=== PATIENT | male | born 1965 | race Two or more races ===

== ENCOUNTER 2024-08-20 20:56 | Inpatient (IN) | payer MEDICAID, OTHER ==
[~2024-08-20] VITALS: Ht 170.2 cm; Wt 95.6 kg
[2024-08-20] MEDS: MORPHINE SULFATE 4 MG/ML SYR/VIAL IV ONE (21:30)
--- NOTE | 2024-08-20 21:33 | ED.PDOC ---
HPI Comments 58-year-old male who came to ER for chest pains. Patient has history of hypertension and diabetes. States he has been having chest pain since yesterday afternoon, chest pain described to be pressure, substernal, intermittent, radiating to his left shoulder,associated with shortness of breath, dizziness and an episode of vomiting and diarrhea. Blood pressure upon arrival was 171/97 mmHg Chief Complaint: Chest Pain Time Seen by MD: 21:32 Reviewed Notes: Nurses Notes Allergies: Coded Allergies: NO KNOWN ALLERGIES (Unverified , 08/20/24) Information Source: Patient Mode of Arrival: Ambulatory Severity: Moderate Timing: Hours Duration: Intermittent Prehospital treatment: None Location: Substernal Radiation: Shoulder (L) Quality: Pressure Onset: With Light Exertion Cardiac Risk Factors: HTN, Diabetes History of: Similar pain in past Modifying Factors: Nothing Associated Signs and Symptoms: SOB, N/V Past Medical History PAST MEDICAL HISTORY: Asthma, DM, HTN Surgical History: Denies all surgeries Family History Family History: Reviewed,noncontributory to illness Social History Smoker: Non-Smoker Alcohol: Denies ETOH Use Drugs: Denies Drug Use Lives In: Home Constitutional: reports: weakness; denies: chills, diaphoresis, fatigue, fever, malaise, sweats, others EENTM: denies: blurred vision, double vision, ear bleeding, ear discharge, ear drainage, ear pain, ear ringing, eye pain, eye redness, hearing loss, mouth pain, mouth swelling, nasal discharge, nose bleeding, nose congestion, nose pain, photophobia, tearing, throat pain, throat swelling, voice changes, others Respiratory: reports: SOB at rest, shortness of breath; denies: cough, hemoptysis, orthopnea, SOB with excertion, stridor, wheezing, others Cardiovascular: reports: chest pain, dizzy spells, left arm pain; denies: diaphoresis, Dyspnea on exertion, edema, irregular heart beat, lightheadedness, palpitations, PND, syncope, others Gastrointestinal: reports: diarrhea, nausea, vomiting; denies: abdomen distended, abdominal pain, blood streaked bowels, constipated, dysphagia, difficulty swallowing, hematemesis, melena, poor appetite, poor fluid intake, rectal bleeding, rectal pain, others Genitourinary: denies: burning, dysuria, flank pain, frequency, hematuria, i ncontinence, penile discharge, penile sore, pain, testicle pain, testicle swelling, urgency, others Neurological: denies: dizziness, fainting, headache, left sided numbness, left sided weakness, numbness, paresthesia, pre-existing deficit, right sided numbness, right sided weakness, seizure, speech problems, tingling, tremors, weakness, others Musculoskeletal: denies: back pain, gout, joint pain, joint swelling, muscle pain, muscle stiffness, neck pain, others Integumetry: denies: bruises, change in color, change in hair/nails, dryness, laceration, lesions, lumps, rash, wounds, others Allergic/Immunocompromised: denies: Difficulty Healing, Frequent Infections, Hives, Itching, others Hematologic/Lymphatic: denies: anemia, blood clots, easy bleeding, easy bruising, swollen glands, others Endocrine: denies: excessive hunger, excessive sweating, excessive thirst, excessive urination, flushing, intolerance to cold, intolerance to heat, unexplained weight gain, unexplained weight loss, others Psychiatric: denies: anxiety, bipolar disorder, depression, hopeless, panic disorder, schizophrenia, sleepless, suicidal, others Physical Exam General Appearance: No Apparent Distress, Normal HEENT: Normal ENT Inspection, Pharynx Normal, TMs Normal Neck: Full Range of Motion, Non-Tender, Normal, Normal Inspection Respiratory: Chest Non-Tender, Lungs Clear, No Accessory Muscle Use, No Respiratory Distress, Normal Breath Sounds Cardiovascular: No Edema, No JVD, No Murmur, No Gallop, Normal Peripheral Pulses, Regular Rate/Rhythm Breast Exam: Deferred Gastrointestinal: No Organomegaly, Non Tender, No Pulsatile Mass, Normal Bowel Sounds, Soft Genitalia: Deferred Pelvic: Deferred Rectal: Deferred Extremities: No calf tenderness, Normal capillary refill, Normal inspection, Normal range of motion, Non-tender, No pedal edema Musculoskeletal : Apperance: Normal Neurologic: Alert, public health assistant II-XII nml as Tested, No Motor Deficits, Normal Affect, Normal Mood, No Sensory Deficits Cerebellar Function: Normal Reflexes: Normal Skin: Dry, Normal Color, Warm Lymphatic: No Adenopathy Was a procedure done? Was a procedure done?: No CP Differential Dx Differential Diagnosis: Angina, Anxiety / Panic Attack, Hyperventilation Differential Diagnosis: Angina, Chest Wall Pain, Costochondritis, Esophageal reflux/spasm, Gastritis, Myocardial Infarction X-Ray, Labs, Meds, VS Vital Signs Date Time Temp Pulse Resp B/P (MAP) Pulse Ox O2 Delivery O2 Flow Rate FiO2 08/21/24 00:57 81 20 169/109 08/21/24 00:56 169/109 08/21/24 00:31 98.6 81 20 167/109 (128) 96 98.6 08/20/24 21:56 82 08/20/24 21:12 98.1 84 16 171/97 (121) 97 98.1 08/20/24 21:03 79 Lab Test 08/20/24 22:26 08/20/24 21:10 Range/Units Troponin I High Sensitivity 13 12 </=54 ng/L White Blood Count 12.5 H 4.4-10.8 10^3/uL Red Blood Count 5.03 4.5-5.90 10^6/uL Hemoglobin 15.8 13.5-17.5 g/dL Hematocrit 46.3 41.0-53.0 % Mean Corpuscular Volume 91.9 80.0-100.0 fL Mean Corpuscular Hemoglobin 31.4 28.0-32.0 pg Mean Corpuscular Hemoglobin Concent 34.1 32.0-36.0 g/dL Red Cell Distribution Width 13.3 11.8-14.3 % Platelet Count 180 140-450 10^3/uL Mean Platelet Volume 9.5 6.9-10.8 fL Neutrophils (%) (Auto) 70.9 37.0-80.0 % Lymphocytes (%) (Auto) 18.2 10.0-50.0 % Monocytes (%) (Auto) 8.4 0.0-12.0 % Eosinophils (%) (Auto) 1.9 0.0-7.0 % Basophils (%) (Auto) 0.6 0.0-2.0 % Neutrophils # (Auto) 8.9 H 1.6-8.6 10 ^3/uL Lymphocytes # (Auto) 2.3 0.4-5.4 10 ^3/uL Monocytes # (Auto) 1.0 0-1.3 10 ^3/uL Eosinophils # (Auto) 0.2 0-0.8 10 ^3/uL Basophils # (Auto) 0.1 0-0.2 10 ^3/uL Nucleated Red Blood Cells 0.0 % Prothrombin Time 10.0 9.3-11.8 sec Prothrombin Time INR 0.94 0.9-1.15 Activated Partial Thromboplast Time 28.8 24.5-34.5 SEC D-Dimer, Quantitative 0.36 0.0-0.49 mg/L FEU Sodium Level 142 136-145 mmol/L Potassium Level 3.5 3.5-5.1 mmol/L Chloride Level 109 H 98-107 mmol/L Carbon Dioxide Level 25 20-31 mmol/L Anion Gap 8 5-15 Blood Urea Nitrogen 14 9-23 mg/dL Creatinine 0.93 0.700-1.30 mg/dL Glomerular Filtration Rate Calc 96 >90 mL/min BUN/Creatinine Ratio 15.1 10.0-20.0 Serum Glucose 137 H 74-106 mg/dL Calcium Level 9.0 8.7-10.4 mg/dL Total Bilirubin 0.4 0.2-1.0 mg/dL Aspartate Amino Transferase (AST) 31 13-40 U/L Alanine Aminotransferase (ALT) 33 7-40 U/L Alkaline Phosphatase 120 H 46-116 U/L B-Type Natriuretic Peptide 215.26 0-100 pg/mL Total Protein 6.4 5.7-8.2 g/dL Albumin 4.1 3.2-4.8 g/dL Current Medications Medications (Trade) Dose Ordered Sig/Cristian Route Start Time Stop Time Status Last Admin Sodium Chloride 1,000 ml @ 1,000 mls/hr Q1H ONCE IVB 08/20/24 21:30 08/20/24 22:29 DC 08/21/24 00:57 Morphine Sulfate 4 mg ONCE ONCE IV 08/20/24 21:30 08/20/24 21:31 DC 08/21/24 00:57 Ondansetron HCl (Zofran) 4 mg ONCE ONCE IV 08/20/24 21:30 08/20/24 21:31 DC 08/21/24 00:56 Hydralazine HCl (Apresoline Injection) 10 mg ONCE ONCE IV 08/20/24 21:30 08/20/24 21:31 DC 08/21/24 00:56 Time of 1ST Reevaluation: 21:29 Reevaluation 1ST: Unchanged Patient Education/Counseling: Diagnosis, Treatment Family Education/Counseling: No Family Present Departure 1 Departure Time of Disposition: 01:16 Impression: Primary Impression: Chest pain Disposition: 01 HOME / SELF CARE / HOMELESS Condition: Stable Discharged With: Self Critical Care Note Critical Care Time?: Yes (35 min-critical care time only) Critical care comment: Chest pains Stability Stability form required: No Heart Score Heart Score: Heart Score Response (Comments) Value History Slightly Suspicious 0 EKG Normal 0 Age 45-64 1 Risk Factors 1 or 2 risk factors 1 Troponin Normal limit 0 Total 2 I personally scribed for FIDELINA DUPONT MD ([email or web address]) on 08/20/24 at 21:33. Electronically submitted by Saúl Salmon ([email or web address]). FIDELINA DUPONT MD Aug 20, 2024 21:33
[2024-08-20 21:43] LABS: Basophils # (auto) 0.1 10 ^3/uL (0-0.2); Basophils % (auto) 0.6 % (0.0-2.0); Eosinophils # (auto) 0.2 10 ^3/uL (0-0.8); Eosinophils % (auto) 1.9 % (0.0-7.0); Hematocrit 46.3 % (41.0-53.0); Hemoglobin 15.8 g/dL (13.5-17.5); Lymphocytes # (auto) 2.3 10 ^3/uL (0.4-5.4); Lymphocytes % (auto) 18.2 % (10.0-50.0); Mean Corpuscular Hemoglobin 31.4 pg (28.0-32.0); Mean Corpuscular Hgb Conc. 34.1 g/dL (32.0-36.0); Mean Corpuscular Volume 91.9 fL (80.0-100.0); Monocytes % (auto) 8.4 % (0.0-12.0); Neutrophils # (auto) 8.9 10 ^3/uL (1.6-8.6); Neutrophils % (auto) 70.9 % (37.0-80.0); Platelet Count (auto) 180 10^3/uL (140-450); Red Blood Cells 5.03 10^6/uL (4.5-5.90); Red Cell Distribution Width 13.3 % (11.8-14.3); White Blood Cell 12.5 10^3/uL (4.4-10.8)
[2024-08-20 22:00] LABS: INR 0.94 (0.9-1.15); Partial Thromboplastin Time 28.8 SEC (24.5-34.5)
[2024-08-20 22:09] LABS: Alanine Aminotransferase 33 U/L (7-40); Albumin 4.1 g/dL (3.2-4.8); Anion Gap 8 (5-15); Aspartate Aminotransferase 31 U/L (13-40); BUN/Creatinine Ratio 15.1 (10.0-20.0); Bilirubin, Total 0.4 mg/dL (0.2-1.0); Blood Urea Nitrogen 14 mg/dL (9-23); Carbon Dioxide 25 mmol/L (20-31); Potassium 3.5 mmol/L (3.5-5.1); Sodium 142 mmol/L (136-145); Total Protein 6.4 g/dL (5.7-8.2)
[2024-08-20 22:13] LABS: Alkaline Phosphatase 120 U/L (46-116); Chloride 109 mmol/L (98-107); Glucose 137 mg/dL (74-106)
--- NOTE | 2024-08-20 22:19 | DVH ---
CHEST RADIOGRAPH Indication: chest pain Technique: Single frontal view of the chest was obtained Comparison: None FINDINGS: Heart size is normal the trachea is midline jon is splayed suggesting possible underlying left atr ial enlargement. There is mild pulmonary vascular congestion noted bilaterally. IMPRESSION: Possible very mild early CHF pattern 2. . 3. I would suggest 4. cardiac ECHO follow-up
[2024-08-21] VITALS (8 sets, daily range): BP systolic 112–148; BP diastolic 61–86; PULSE 69–103; RESP 15–19; TEMP 98–98.8; O2SAT 94–98
[2024-08-21] MEDS: hydrALAZINE HCL 20 MG/ML VL IV ONE ×3 (00:56→02:38)
[2024-08-21] MEDS: ONDANSETRON HCL 4 MG/2 ML VIAL IV ONE ×2 (00:56→00:58)
[2024-08-21] MEDS: SODIUM CHLORIDE 0.9% 1,000 ML IVB ONE (00:57)
[2024-08-21] MEDS: MORPHINE SULFATE 4 MG/ML SYR/VIAL IV ONE (00:57)
[2024-08-21] MEDS: ASPirin 81 mg TAB PO ONE (02:38)
[2024-08-21 03:12] LABS: Urine Bacteria None Seen /hpf (None Seen)
[2024-08-21 03:17] LABS: Urine Blood Negative /uL (Negative); Urine Clarity Clear (Clear); Urine Color Colorless (Yellow); Urine Protein, UAD Negative (Negative); Urine Squamous Epithelial Cell None Seen /hpf (<5); Urine Urobilinogen Normal (Negative); Urine WBC < 1 /HPF (0-3); Urine pH 6.5 (5.0-9.0)
[2024-08-21 04:52] LABS: Opiate Scree,Urine Neg (NEGATIVE)
[2024-08-21 04:57] LABS: Amphetamine Screen, Urine Neg (NEGATIVE); Barbiturate Scree,Urine Neg (NEGATIVE); Benzodiazephine Screen, Urine Neg (NEGATIVE); Cannabinoid Screen, Urine Neg (NEGATIVE); Cocaine Screen, Urine Neg (NEGATIVE); Phencyclidine Screen, Urine Neg (NEGATIVE)
[2024-08-21] MEDS ORDERED: NITROGLYCERIN 0.4 MG SL TAB SL PRN (07:45)
[2024-08-21] MEDS ORDERED: DEXTROSE (50%) 50ML SYRG IV PRN (07:45)
[2024-08-21] MEDS ORDERED: MORPHINE SULFATE INJ 2 MG/ml SYRG IV PRN ×2 (07:45)
[2024-08-21] MEDS ORDERED: DOCUSATE SOD 100 MG CAP PO PRN (07:45)
[2024-08-21] MEDS ORDERED: ONDANSETRON HCL 4 MG/2 ML VIAL IV PRN (07:45)
[2024-08-21] MEDS ORDERED: AMLO1TAB23 PO (09:04)
[2024-08-21] MEDS ORDERED: ATOR10TA52 PO (09:04)
[2024-08-21] MEDS ORDERED: METF-370 PO (09:04)
[2024-08-21] MEDS ORDERED: TRIA37.587 PO (09:08)
[2024-08-21] MEDS: metFORMIN HYDROCHLORIDE 500 MG TAB PO SCH (09:22)
--- NOTE | 2024-08-21 09:30 | DVHHP2 ---
History of Present Illness Reason for Visit: Chest pain History of Present Illness Julián Lopez is a 58-year-old male with past medical history of hypertension, asthma, and diabetes, who came in with complaints of chest pain. Patient states he has been experiencing intermittent chest pain for the last 2 days. He describes it as a tightness, with associated nausea and vomiting. He states the pain comes and goes with activity and at rest. Patient also complains of pain to the left side of nose/face. He states it popped yesterday, It is red, warm, swollen, and painful. Cardiovascular: HTN Pulmonary: Asthma Endocrine: Diabetes Past Surgical History: Hernia Repair (x 3), Other (right eye, left foot) Smoke: No ALCOHOL: none Drugs: None Lives: Alone Domestic Violence: Neg Review of Systems Constitutional: No: Fever, Chills, Sweats, Weakness, Malaise, Other Eyes: No: Pain, Vision change, Conjunctivae inflammation, Eyelid inflammation, Other, Redness ENT: Nose pain, Other (left side of nose/face red, warm, swollen, painful. States it popped yesterday, scab noted); No: Ear pain, Ear discharge, Nose discharge, Nose congestion, Mouth pain, Mouth swelling, Throat pain, Throat swelling Respiratory: Shortness of breath; No: Cough, Dry, SOB with excertion, Wheezing, Hemoptysis, Pleuritic Pain, Sputum, Wheezing, Other Cardiovascular: Chest Pain (tightness); No: Palpitations, Orthopnea, Paroxysmal Noc. Dyspnea, Edema, Lt Headedness, Other Gastrointestinal: Nausea, Vomiting; No: Abdominal Pain, Diarrhea, Constipation, Melena, Hematochezia, Other Genitourinary: No Dysuria, No Frequency, No Incontinence, No Hematuria, No Retention, No Other Musculoskeletal: No: other, neck pain, shoulder pain, arm pain, back pain, hand pain, leg pain, foot pain Skin: No: Rash, Lesions, Jaundice, Bruising, Other Neurological: No: Weakness, Numbness, Incoordination, Change in speech, Confusion, Seizures, Other Allergies: Coded Allergies: NO KNOWN ALLERGIES (Unverified , 08/20/24) Exam Vital Signs Vital Signs Date Time Temp Pulse Resp B/P (MAP) Pulse Ox O2 Delivery O2 Flow Rate FiO2 08/21/24 06:28 98.4 75 22 110/70 (83) 96 98.4 08/21/24 03:17 Room Air* 0 21 General Appearance: Alert, Oriented X3, Cooperative HEENT: Other (blind in right eye, left side of nose/face red, warm, swollen, painful ) Respiratory: Clear to auscultation, Normal air movement Cardiovascular: Regular rate, Normal S1, Normal S2, No murmurs Abdominal: Normal bowel sounds, Soft, No tenderness Extremities: No clubbing, No cyanosis, No edema, Normal pulses, No tenderness/swelling Skin: No rashes, No breakdown, No significant lesion Neuro: Normal gait, Normal speech, Strength at 5/5 X4 ext Psych/Mental Status: Mental status NL, Mood NL Labs/Xrays Labs Test 08/21/24 03:04 08/20/24 22:26 08/20/24 21:10 Range/Units Urine Color Colorless Yellow Urine Clarity Clear Clear Urine pH 6.5 5.0-9.0 Urine Specific Alborn 1.010 1.001-1.035 Urine Protein Negative Negative Urine Ketones Negative Negative Urine Blood Negative Negative /uL Urine Nitrite Negative Negative Urine Bilirubin Negative Negative Urine Urobilinogen Normal Negative mg/dL Urine Leukocyte Esterase Negative Negative /uL Urine RBC None seen 0 - 3 /hpf Urine Microscopic WBC < 1 0-3 /HPF Urine Squamous Epithelial Cells None seen <5 /hpf Urine Bacteria None seen None Seen /hpf Urine Glucose Trace Normal mg/dL Urine Opiates Screen Neg NEGATIVE Urine Fentanyl Screen Neg NEGATIVE Urine Barbiturates Screen Neg NEGATIVE Urine Phencyclidine Screen Neg NEGATIVE Urine Amphetamines Screen Neg NEGATIVE Urine Benzodiazepines Screen Neg NEGATIVE Urine Cocaine Screen Neg NEGATIVE Urine Cannabinoids Screen Neg NEGATIVE Troponin I High Sensitivity 13 </=54 ng/L White Blood Count 12.5 H 4.4-10.8 10^3/uL Red Blood Count 5.03 4.5-5.90 10^6/uL Hemoglobin 15.8 13.5-17.5 g/dL Hematocrit 46.3 41.0-53.0 % Mean Corpuscular Volume 91.9 80.0-100.0 fL Mean Corpuscular Hemoglobin 31.4 28.0-32.0 pg Mean Corpuscular Hemoglobin Concent 34.1 32.0-36.0 g/dL Red Cell Distribution Width 13.3 11.8-14.3 % Platelet Count 180 140-450 10^3/uL Mean Platelet Volume 9.5 6.9-10.8 fL Neutrophils (%) (Auto) 70.9 37.0-80.0 % Lymphocytes (%) (Auto) 18.2 10.0-50.0 % Monocytes (%) (Auto) 8.4 0.0-12.0 % Eosinophils (%) (Auto) 1.9 0.0-7.0 % Basophils (%) (Auto) 0.6 0.0-2.0 % Neutrophils # (Auto) 8.9 H 1.6-8.6 10 ^3/uL Lymphocytes # (Auto) 2.3 0.4-5.4 10 ^3/uL Monocytes # (Auto) 1.0 0-1.3 10 ^3/uL Eosinophils # (Auto) 0.2 0-0.8 10 ^3/uL Basophils # (Auto) 0.1 0-0.2 10 ^3/uL Nucleated Red Blood Cells 0.0 % Prothrombin Time 10.0 9.3-11.8 sec Prothrombin Time INR 0.94 0.9-1.15 Activated Partial Thromboplast Time 28.8 24.5-34.5 SEC D-Dimer, Quantitative 0.36 0.0-0.49 mg/L FEU Sodium Level 142 136-145 mmol/L Potassium Level 3.5 3.5-5.1 mmol/L Chloride Level 109 H 98-107 mmol/L Carbon Dioxide Level 25 20-31 mmol/L Anion Gap 8 5-15 Blood Urea Nitrogen 14 9-23 mg/dL Creatinine 0.93 0.700-1.30 mg/dL Glomerular Filtration Rate Calc 96 >90 mL/min BUN/Creatinine Ratio 15.1 10.0-20.0 Serum Glucose 137 H 74-106 mg/dL Calcium Level 9.0 8.7-10.4 mg/dL Total Bilirubin 0.4 0.2-1.0 mg/dL Aspartate Amino Transferase (AST) 31 13-40 U/L Alanine Aminotransferase (ALT) 33 7-40 U/L Alkaline Phosphatase 120 H 46-116 U/L B-Type Natriuretic Peptide 215.26 0-100 pg/mL Total Protein 6.4 5.7-8.2 g/dL Albumin 4.1 3.2-4.8 g/dL CHEST RADIOGRAPH FINDINGS: Heart size is normal the trachea is midline jon is splayed suggesting possible underlying left atrial enlargement. There is mild pulmonary vascular congestion noted bilaterally. IMPRESSION: Possible very mild early CHF pattern 2. . 3. I would suggest 4. cardiac ECHO follow-up Assessment/Plan Assessment/Plan Assessment: R/O ACS, Cellulitis of face, Possible new CHF, Hypertension, Diabetes, Plan: Admit to Tele, Cardiology consult, ECHO, IV antibiotics, IV hydration, Accu checks Q AC&HS with sliding scale, Home medications reconciled, Consider CT face if symptoms persist, Plan discussed with: Patient My Orders Orders - YANA DAVISLOUISE Correa MANAGER AREA Procedure Category Date Status Time Admit ADMIT 08/21/24 Transmitted 07:32 Code Status CODE 08/21/24 Transmitted 07:32 2 Gm Sodium Diet DIET 08/21/24 Transmitted Breakfast Hydrocodone-Acet PHA 08/21/24 Transmitted 5/325mg Tab (Newborn 07:45 Ondansetron Hcl PHA 08/21/24 Transmitted (Zofran) 07:45 Docusate Sodium PHA 08/21/24 Transmitted Capsule (Colace 07:45 Complete Blood Count LAB 08/22/24 Verified 04:00 Comprehensive LAB 08/22/24 Verified Metabolic Panel 04:00 Condition: Serious PEDRITO 08/21/24 Transmitted 07:32 Acetaminophen Tablet PHA 08/21/24 Transmitted (Tylenol Tablet) 07:45 Morphine Sulfate PHA 08/21/24 Transmitted Injection 07:45 Nitroglycerin PHA 08/21/24 Transmitted Sublingual (Ntrostat 07:45 Morphine Sulfate PHA 08/21/24 Transmitted Injection 07:45 Stat Ekg For Chest PEDRITO 08/21/24 Transmitted Pain 07:32 Notify Md Of Changes PEDRITO 08/21/24 Transmitted From Base 07:32 Pulling Unit Floorhand For PEDRITO 08/21/24 Transmitted 24 Hours 07:32 Emergency Dysrhythmia PEDRITO 08/21/24 Transmitted Protocol 07:32 Rhythm Strips Once PEDRITO 08/21/24 Transmitted Every Shift 07:32 Oxygen By Nasal RT 08/21/24 Transmitted Cannula 07:32 Glucose Blood PHA 08/21/24 Transmitted (Accu-Chek Comfort 11:30 Bedtime Insulin Scale PHA 08/21/24 Transmitted 22:00 Moderate Insulin Ss PHA 08/21/24 Transmitted 11:30 Dextrose 50% Syringe PHA 08/21/24 Transmitted 07:45 Echo 2d Mode Cardiac US 08/21/24 Transmitted DOP 07:32 * Cardiology Consult CONS 08/21/24 Transmitted 07:32 Date of Service: Aug 21, 2024 Billing Provider: JONY DAVIS Common Visit Codes: [id number] INP/OBS CARE (MOD) JONY DAVIS Aug 21, 2024 09:30
[2024-08-21] MEDS: TRIAMTERENE/HCTZ 37.5/25 MG CAP/TAB PO SCH (11:13)
[2024-08-21] MEDS: CLINDAMYCIN 600MG IV 50 ML IV SCH (11:14)
[2024-08-21] MEDS: ACCU-CHEK COMFORT CURVE STRIP VI SCH (11:14)
[2024-08-21] MEDS: amLODIPine BESYLATE 5 MG TAB PO SCH (11:14)
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
[2024-08-21] MEDS: InsuLIN REG 1unit/0.01ml Soln (100units/ml) SC SCH ×2 (11:30→22:17)
[2024-08-21] MEDS: ACETAMINOPHEN 325 MG TAB PO PRN (11:49)
[2024-08-21 11:53] LABS: Magnesium 1.9 mg/dL (1.6-2.6)
--- NOTE | 2024-08-21 12:38 | ECG ---
[facility] Test Date: 2024-08-20 Test Time: 21:03:51 Pat Name: YANDEL WHITE Department: ER Room: 0250T B Gender: M [employer]: KARRIE : 1965 Requested By: FIDELINA DUPONT Order Number: [id number] Reading MD: Jesse Morrison Measurements Intervals [place] Rate: 79 P: 2 MT: 164 QRS: -52 QRSD: 92 T: 111 QT: 365 QTc: 419 Interpretive Statements Sinus rhythm Left anterior fascicular block RSR' in V1 or V2, right VCD or RVH Borderline T abnormalities, lateral leads Electronically Signed On 08-21-2024 22:15:09 PDT by Jesse Morrison Please click the below link to view image of tracing.
--- NOTE | 2024-08-21 14:58 | DVHSR ---
APPROVED REPORT EXAM: Two-dimensional and M-mode echocardiogram with Doppler and color Doppler. Blood Pressure: 110/70 mmHg INDICATION R/O ACS, structural deficts RISK FACTORS Height: 5'7, Weight: 217 DIMENSIONS LVDd3.3 (3.8-5.7cm)LA (2D)4.1 (1.9-4.0cm)Aortic Root40.0 (2.0-3.7cm) LVDs2.6 (2.5-4.0cm)LA (MM) (1.9-4.0cm)Aortic Cusp Exc2.3 (1.5-2.0cm) EF (%) 50.0 (55-70%)Rt. Atrium3.1 (1.9-4.0cm)Asc. Aorta4.0 cm IVSd1.4 (0.7-1.1cm)RV (D)3.3 (1.8-2.4cm) PWd1.3 (0.7-1.1cm) Mitral Valve MitralMitral Stenosis E wave0.94m/sMV Mean GR.mmHg A wave0.66m/sMV Peak GR.60mmHg E/A ratio1.42D MVAcm2 DECEL [id number] 1/2 Timems Aortic Valve Aortic ValveAortic Stenosis V10.89m/Christelle Mean GR.3mmHg V21.13m/Christelle Peak GR.5mmHg LVOT Diameter2.3 (1.8-2.4cm)Doppler AVA3.27cm2 Pulmonic Valve V20.91m/s Tricuspid Valve TR Velocity2.45m/s [id number] Conclusion Normal biventricular size and systolic function. LVEF 55-60%. Normal wall motion. Trxy-av-mduedhix LV H. Grade 2 diastolic dysfunction. Mild LA enlargement. No significant valvular disease. Mild MAC. Trace MR. Trace TR. RVSP estimated at 32 mmHg based on RAP of 8 mmHg. Mild TAA - 4.0 cm. Normal size IVC but noncollapsing. No pericardial effusion.
[2024-08-21] MEDS: ATORVASTATIN 20 MG TAB PO SCH (22:06)
[2024-08-22] VITALS (8 sets, daily range): BP systolic 115–162; BP diastolic 64–97; PULSE 63–90; RESP 15–19; TEMP 97.7–98.8; O2SAT 93–97
[2024-08-22 07:27] LABS: Basophils # (auto) 0 10 ^3/uL (0-0.2); Basophils % (auto) 0.5 % (0.0-2.0); Eosinophils # (auto) 0.2 10 ^3/uL (0-0.8); Eosinophils % (auto) 2.6 % (0.0-7.0); Hematocrit 47.4 % (41.0-53.0); Hemoglobin 16.4 g/dL (13.5-17.5); Lymphocytes # (auto) 1.7 10 ^3/uL (0.4-5.4); Lymphocytes % (auto) 20.4 % (10.0-50.0); Mean Corpuscular Hemoglobin 31.8 pg (28.0-32.0); Mean Corpuscular Hgb Conc. 34.6 g/dL (32.0-36.0); Mean Corpuscular Volume 92.1 fL (80.0-100.0); Monocytes # (auto) 0.6 10 ^3/uL (0-1.3); Monocytes % (auto) 7.6 % (0.0-12.0); Neutrophils # (auto) 5.8 10 ^3/uL (1.6-8.6); Neutrophils % (auto) 68.9 % (37.0-80.0); Nucleated Red Blood Cells % 0.1 %; Platelet Count (auto) 186 10^3/uL (140-450); Red Blood Cells 5.15 10^6/uL (4.5-5.90); Red Cell Distribution Width 13.1 % (11.8-14.3); White Blood Cell 8.4 10^3/uL (4.4-10.8)
[2024-08-22 07:33] LABS: Alanine Aminotransferase 24 U/L (7-40); Albumin 3.8 g/dL (3.2-4.8); Alkaline Phosphatase 114 U/L (46-116); Anion Gap 9 (5-15); Aspartate Aminotransferase 23 U/L (13-40); BUN/Creatinine Ratio 12.5 (10.0-20.0); Bilirubin, Total 0.7 mg/dL (0.2-1.0); Blood Urea Nitrogen 12 mg/dL (9-23); Calcium 9.2 mg/dL (8.7-10.4); Carbon Dioxide 24 mmol/L (20-31); Chloride 106 mmol/L (98-107); Glucose 107 mg/dL (74-106); Potassium 3.6 mmol/L (3.5-5.1); Sodium 139 mmol/L (136-145)
--- NOTE | 2024-08-22 10:22 | ECG ---
[facility] Test Date: 2024-08-20 Test Time: 21:56:24 Pat Name: YANDEL WHITE Department: ER Room: 0250T B Gender: M Pharmacy Consultant: ER : 1965 Requested By: FIDELINA DUPONT Order Number: [id number] Reading MD: Jesse Morrison Measurements Intervals [place] Rate: 82 P: 33 PA: 163 QRS: -40 QRSD: 94 T: 145 QT: 353 QTc: 413 Interpretive Statements Sinus rhythm Left axis deviation RSR' in V1 or V2, right VCD or RVH Nonspecific T abnormalities, lateral leads Electronically Signed On 08-23-2024 18:40:04 PDT by Jesse Morrison Please click the below link to view image of tracing.
[2024-08-22] MEDS: HYDROcodone-ACET 5/325MG TAB PO PRN (12:30)
[2024-08-22] MEDS ORDERED: NIFE1TAB31 PO (13:04)
--- NOTE | 2024-08-22 13:52 | DVHPN2 ---
Consult Progress Note Subjective Other Systems: Patient in normal sinus rhythm at time of assessment. Denies any cardiac symptoms Objective vital signs Vital Sign Date Time Temp Pulse Resp B/P (MAP) Pulse Ox O2 Delivery O2 Flow Rate FiO2 08/22/24 09:00 98.6 82 19 162/93 (116) 95 98.6 08/22/24 08:30 Nasal Cannula* 2 28 Total Intake and Output 08/21/24 08/21/24 08/22/24 15:00 23:00 07:00 Intake Total 50 ml 350 ml 600 ml Output Total 700 ml Balance 50 ml -350 ml 600 ml medications Current Medications Medications Dose Ordered Sig/Cristian Route Start Time Stop Time Status Last Admin Dose Admin Acetaminophen/ Hydrocodone Bitart 1 tab Q4HP PRN PO 08/21/24 07:45 08/22/24 12:30 1 TAB Ondansetron HCl 4 mg Q4HP PRN IV 08/21/24 07:45 Docusate Sodium 100 mg BIDPRN PRN PO 08/21/24 07:45 Acetaminophen 650 mg Q6HP PRN PO 08/21/24 07:45 08/22/24 08:58 650 MG Morphine Sulfate 2 mg Q4HPRN PRN IV 08/21/24 07:45 Nitroglycerin 0.4 mg Q5MINP PRN SL 08/21/24 07:45 Morphine Sulfate 2 mg Q30M PRN IV 08/21/24 07:45 Diagnostic Test (Pha) 1 strip ACHS 08/21/24 11:30 08/22/24 11:17 1 STRIP Insulin Human Regular HS SC 08/21/24 22:00 08/21/24 22:17 2 UNITS Insulin Human Regular AC SC 08/21/24 11:30 08/21/24 17:57 2 UNITS Dextrose 50 ml UD PRN IV 08/21/24 07:45 Atorvastatin Calcium 10 mg HS PO 08/21/24 22:00 08/21/24 22:06 10 MG Triamterene/HCTZ 1 cap DAILY PO 08/21/24 10:00 08/22/24 08:50 1 CAP Clindamycin Phosphate 50 ml @ 50 mls/hr Q8HR IV 08/21/24 09:15 08/22/24 05:29 50 MLS/HR Nifedipine 60 mg DAILY PO 08/23/24 10:00 Examination: GENERAL:Normal, LUNGS:Normal, CVS:Normal, NEURO:Normal laboratory and microbiology Laboratory Tests 08/22/24 06:41 Test 08/22/24 06:41 Range/Units Serum Glucose 107 H 74-106 mg/dL Problem List/Assessment/Plan Problem List/Assessment/Plan Chest pain, likely in the setting of hypertensive urgency Dyslipidemia Type 2 diabetes mellitus History of drug use Obesity Plan/Recommendation We will continue with the following plan/recommendations (): * Transthoracic echocardiogram reveals EF 55-60%, RVSP 32mmHg * Chest pain protocol * HEART score: 4 points (moderate) * Recent negative stress test 2 months ago (per patient) * Blood pressure control * Lipid-lowering agent * Close Cardiac surveillance Given negative troponin level and unremarkable twelve lead electrocardiogram, doubt ACS. The patient recently underwent a nuclear stress test approximately two months ago in which results were negative. At this time, we will recommend for the patient to undergo aggressive blood pressure control. Today, BP still high. Primary team switched to Nifedipine for tighter BP control. Thank you for allowing us to care for this patient. Please call with any questions or concerns. This medical document was created using an electronic medical record system with voice recognition software and computerized dictation system. Although this document has been carefully reviewed, there might still be some phonetic and typographical errors. Occasional wrong-word or ``sound-alike substitutions may have occurred due to the inherent limitations of voice recognition software. These areas are purely typographical due to imperfections of the software programs and do not reflect any compromise in the patient's medical care. Please read the chart carefully and recognize, using context, where these substitutions have occurred. Plan discussed with: Patient Date of Service: Aug 22, 2024 Billing Provider: DENIS SANTANA Common Visit Codes: [id number] INP/OBS CARE(HIGH) DENIS SANTANA Aug 22, 2024 13:52
[2024-08-22 15:00] LABS: Hepatitis C Antibody Negative (Negative)
[2024-08-22 15:01] LABS: Hepatitis B Surface Antigen Negative (Negative)
[2024-08-23] MEDS ORDERED: NIFEdipine ER 30 MG TAB PO SCH (10:00)
--- NOTE | 2024-08-23 11:37 | DVHDS2 ---
Discharge Summary Date of Admission Aug 21, 2024 at 07:32 Date of Discharge: Aug 22, 2024 Labs/Diagnostic Data: Laboratory Results Test 08/22/24 10:56 08/22/24 06:41 08/21/24 11:24 08/21/24 03:04 POC Glucose 115 mg/dl (70-106) White Blood Count 8.4 10^3/uL (4.4-10.8) Red Blood Count 5.15 10^6/uL (4.5-5.90) Hemoglobin 16.4 g/dL (13.5-17.5) Hematocrit 47.4 % (41.0-53.0) Mean Corpuscular Volume 92.1 fL (80.0-100.0) Mean Corpuscular Hemoglobin 31.8 pg (28.0-32.0) Mean Corpuscular Hemoglobin Concent 34.6 g/dL (32.0-36.0) Red Cell Distribution Width 13.1 % (11.8-14.3) Platelet Count 186 10^3/uL (140-450) Mean Platelet Volume 9.6 fL (6.9-10.8) Neutrophils (%) (Auto) 68.9 % (37.0-80.0) Lymphocytes (%) (Auto) 20.4 % (10.0-50.0) Monocytes (%) (Auto) 7.6 % (0.0-12.0) Eosinophils (%) (Auto) 2.6 % (0.0-7.0) Basophils (%) (Auto) 0.5 % (0.0-2.0) Neutrophils # (Auto) 5.8 10 ^3/uL (1.6-8.6) Lymphocytes # (Auto) 1.7 10 ^3/uL (0.4-5.4) Monocytes # (Auto) 0.6 10 ^3/uL (0-1.3) Eosinophils # (Auto) 0.2 10 ^3/uL (0-0.8) Basophils # (Auto) 0 10 ^3/uL (0-0.2) Nucleated Red Blood Cells 0.1 % Sodium Level 139 mmol/L (136-145) Potassium Level 3.6 mmol/L (3.5-5.1) Chloride Level 106 mmol/L (98-107) Carbon Dioxide Level 24 mmol/L (20-31) Anion Gap 9 (5-15) Blood Urea Nitrogen 12 mg/dL (9-23) Creatinine 0.96 mg/dL (0.700-1.30) Glomerular Filtration Rate Calc 92 mL/min (>90) BUN/Creatinine Ratio 12.5 (10.0-20.0) Serum Glucose 107 mg/dL (74-106) Calcium Level 9.2 mg/dL (8.7-10.4) Total Bilirubin 0.7 mg/dL (0.2-1.0) Aspartate Amino Transferase (AST) 23 U/L (13-40) Alanine Aminotransferase (ALT) 24 U/L (7-40) Alkaline Phosphatase 114 U/L (46-116) Total Protein 6.0 g/dL (5.7-8.2) Albumin 3.8 g/dL (3.2-4.8) Hemoglobin A1c 5.4 % A1C (<5.7) Magnesium Level 1.9 mg/dL (1.6-2.6) Triglycerides Level 97 mg/dL (< 150) Cholesterol Level 114 mg/dL (< 200) LDL Cholesterol 61 mg/dL (< 100) HDL Cholesterol 41 mg/dL (40-59) Thyroid Stimulating Hormone (TSH) 1.82 uIU/mL (0.55-4.78) Hepatitis B Surface Antigen Negative (Negative) Hepatitis C Antibody Negative (Negative) Urine Color Colorless (Yellow) Urine Clarity Clear (Clear) Urine pH 6.5 (5.0-9.0) Urine Specific [place] 1.010 (1.001-1.035) Urine Protein Negative (Negative) Urine Ketones Negative (Negative) Urine Blood Negative /uL (Negative) Urine Nitrite Negative (Negative) Urine Bilirubin Negative (Negative) Urine Urobilinogen Normal mg/dL (Negative) Urine Leukocyte Esterase Negative /uL (Negative) Urine RBC None seen /hpf (0 - 3) Urine Microscopic WBC < 1 /HPF (0-3) Urine Squamous Epithelial Cells None seen /hpf (<5) Urine Bacteria None seen /hpf (None Seen) Urine Glucose Trace mg/dL (Normal) Urine Opiates Screen Neg (NEGATIVE) Urine Fentanyl Screen Neg (NEGATIVE) Urine Barbiturates Screen Neg (NEGATIVE) Urine Phencyclidine Screen Neg (NEGATIVE) Urine Amphetamines Screen Neg (NEGATIVE) Urine Benzodiazepines Screen Neg (NEGATIVE) Urine Cocaine Screen Neg (NEGATIVE) Urine Cannabinoids Screen Neg (NEGATIVE) Test 08/20/24 22:26 08/20/24 21:10 Troponin I High Sensitivity 13 ng/L (</=54) Prothrombin Time 10.0 sec (9.3-11.8) Prothrombin Time INR 0.94 (0.9-1.15) Activated Partial Thromboplast Time 28.8 SEC (24.5-34.5) D-Dimer, Quantitative 0.36 mg/L FEU (0.0-0.49) B-Type Natriuretic Peptide 215.26 pg/mL (0-100) Other Laboratory Tests 08/22/24 06:41 Brief Hx & Hospital Course: R/O ACS, Cellulitis of face, Possible new CHF, Hypertension, Diabetes, initial plans Admit to Tele, Cardiology consult, ECHO, IV antibiotics, IV hydration, Accu checks Q AC&HS with sliding scale, Home medications reconciled, Consider CT face if symptoms persist, pt was cleared by cardiology and discharged to home EF is low, pt is aware Condition at Discharge: Fair Final Diagnosis/Problems List see above Discharge Disposition: Home Discharge Instruct/Medications Diet: Cardiac 2g Na,low cholest Activity: No Restrictions, As Tolerated Discharge Statement: "Patient was advised to return to the ER or call 911 if any headaches, dizziness, shortness of breath, chest pain, abdominal pain, bleeding, fevers, or worsening of medical condition. Patient was counseled about treatment plan, medications, possible side effects, patientverbalized understanding. All questions were answered to the best of my ability. This discharge took greater then 30 minutes in planning, reviewing documentation, counseling the patient, and discussing with other team members." ASSESSMENT ASSESSMENT Assessment Date of Service: Aug 22, 2024 Billing Provider: MONIQUE CLARK DO Common Visit Codes: [id number]/[id number] DISCH DAY >30min MONIQUE CLARK DO Aug 23, 2024 11:37
== END 2024-08-22 18:00 | disposition home or self-care (01) | DRG 194 ==
LOC: ER 20:56 → OVERFLOW 08-21 07:32 → TELE-EAST 08-21 09:45
PROVIDERS: ADMIT Internal Medicine; ATTEND Internal Medicine
DX: I11.0 Hypertensive heart disease with heart failure (principal); I24.9 Acute ischemic heart disease, unspecified; E11.9 Type 2 diabetes mellitus without complications; L03.211 Cellulitis of face; E66.9 Obesity, unspecified; I16.0 Hypertensive urgency; I50.33 Acute on chronic diastolic (congestive) heart failure; E78.5 Hyperlipidemia, unspecified; J45.909 Unspecified asthma, uncomplicated; Z82.3 Family history of stroke; Z81.8 Family history of other mental and behavioral disorders; Z82.49 Family history of ischemic heart disease and other diseases of the circulatory system; Z68.33 Body mass index [BMI] 33.0-33.9, adult; Z79.899 Other long term (current) drug therapy
CPT/HCPCS: 36415; 71045; 80053; 80061; 80307; 81001; 82962; 83036; 83735; 83880; 84443; 84484; 85025; 85379; 85610; 85730; 86803; 87081; 87340; 93005; 93306; 99291; G0378; J1815; J2405; J3490